=== PATIENT | female | born 1995 | race Caucasian/White ===

== ENCOUNTER 2016-10-21 10:26 | Inpatient (IN) | payer OTHER ==
[2016-10-21] MEDS ORDERED: ZOFRAN IV PRN (20:23)
[2016-10-21] MEDS ORDERED: PEPCID IV PRN (20:23)
[2016-10-21] MEDS ORDERED: PEPCID PO PRN (20:23)
[2016-10-21] MEDS ORDERED: CYTOTEC PO ONE (20:23)
[2016-10-21] MEDS ORDERED: STADOL IV PRN ×2 (20:23)
[2016-10-21] MEDS ORDERED: BRETHINE SUBQ PRN (20:23)
[2016-10-21] MEDS ORDERED: AMBIEN PO PRN (20:23)
[2016-10-21] MEDS ORDERED: TYLENOL PO PRN (20:23)
[2016-10-21] MEDS ORDERED: PITOCIN 30 UNITS/LR 500 ML IV SCH (20:30)
[2016-10-21 21:46] LABS: MANUAL DIFF NEEDED? NO
[2016-10-21 21:49] LABS: BASO% 0.3 % (0.0-0.8); EOS# 0.16 X1000 (0.0-0.7); EOS% 1.5 % (0.0-10.0); HEMATOCRIT 36.4 % (37.0-47.0); HEMOGLOBIN 13.2 g/dL (12.0-16.0); IMM GRAN# 0.14 X1000 (0.0-0.04); IMM GRAN% 1.3 % (0.0-0.5); LYMPH% 15.5 % (20.5-51.1); MCH 31.9 PG (27-31); MCHC 36.3 g/dL (33-37); MCV 87.9 FL (81-99); MONO% 8.2 % (1.7-9.3); MPV 10.5 FL (7.4-10.4); NEUT% 73.2 % (42.2-75.2); PLT 203 X1000 (130-400); RBC 4.14 XMIL (4.2-5.4)
[2016-10-21 21:55] LABS: UR AMPHETAMINES QUAL NONE DETECTED (NONE DETECT); UR BARBITUATES QUAL NONE DETECTED (NONE DETECT); UR BENZODIAZEPIN QUAL NONE DETECTED (NONE DETECT); UR CANNABINOIDS QUAL NONE DETECTED (NONE DETECT); UR COCAINE QUAL NONE DETECTED (NONE DETECT); UR MDMA QUAL NONE DETECTED (NONE DETECT); UR METHADONE QUAL NONE DETECTED (NONE DETECT); UR METHAMPHETAMINE QUAL NONE DETECTED (NONE DETECT); UR OPIATES QUAL NONE DETECTED (NONE DETECT); UR OXYCODONE QUAL NONE DETECTED (NONE DETECT); UR PCP QUAL NONE DETECTED (NONE DETECT); UR TCA QUAL NONE DETECTED (NONE DETECT)
[2016-10-21] MEDS: LR 1,000 ML IV SCH (22:28)
[2016-10-22] MEDS ORDERED: CYTOTEC PO SCH (00:24)
[2016-10-22] MEDS: STADOL IV PRN ×2 (05:01→07:29)
[2016-10-22] MEDS: LR 1,000 ML IV SCH ×4 (05:02→08:35)
[2016-10-22] MEDS ORDERED: MARCAINE 0.25% PF ONE (07:17)
[2016-10-22] MEDS ORDERED: FENTANYL-BUPIV-NS 2 MCG-0.1% 200 ML ONE (07:18)
[2016-10-22] MEDS ORDERED: MARCAINE 0.25% PF INJ ONE (07:30)
[2016-10-22] MEDS ORDERED: FENTANYL-BUPIV-NS 2 MCG-0.1% 200 ML EPIDURAL ONE (08:00)
[2016-10-22] MEDS ORDERED: NESACAINE-MPF 3% ONE (08:44)
[2016-10-22] MEDS ORDERED: FENTANYL ONE (08:44)
[2016-10-22] MEDS ORDERED: XYLOCAINE-MPF 1% ONE (09:31)
[2016-10-22] MEDS ORDERED: PITOCIN IM PRN (09:41)
[2016-10-22] MEDS ORDERED: NORCO-10 PO PRN (09:41)
[2016-10-22] MEDS ORDERED: MINERAL OIL MISC PRN (09:41)
[2016-10-22] MEDS ORDERED: PERCOCET-5 PO PRN (09:41)
[2016-10-22] MEDS ORDERED: M-M-R II VACCINE SUBQ ONE (09:41)
[2016-10-22] MEDS ORDERED: HYDROXYZINE IM PRN (09:41)
[2016-10-22] MEDS ORDERED: XYLOCAINE-MPF 1% INJ PRN (09:41)
[2016-10-22] MEDS ORDERED: CYTOTEC PO PRN (09:41)
[2016-10-22] MEDS ORDERED: BOOSTRIX VACCINE IM ONE (09:41)
[2016-10-22] MEDS ORDERED: BENADRYL IV PRN (09:41)
[2016-10-22] MEDS ORDERED: BENADRYL PO PRN (09:41)
[2016-10-22] MEDS ORDERED: PITOCIN 30 UNITS/LR 500 ML IV ONE (09:41)
[2016-10-22] MEDS ORDERED: PERCOCET-10 PO PRN (09:41)
[2016-10-22] MEDS ORDERED: AMBIEN PO PRN (09:41)
[2016-10-22] MEDS ORDERED: HYDROXYZINE PO PRN (09:41)
[2016-10-22] MEDS ORDERED: PERI MEDS (DERMOPLAST/NUPERCAINAL/TUCKS) MISC PRN (09:41)
[2016-10-22] MEDS ORDERED: PITOCIN 20 UNITS/LR 1,000 ML IV SCH (09:45)
[2016-10-22] MEDS ORDERED: ZOFRAN ODT PO PRN (10:11)
--- NOTE | 2016-10-22 10:23 | OPERATIVE NOTE ---
PROCEDURE DATE: 10/22/2016 TYPE OF DELIVERY: Spontaneous controlled vaginal delivery. ANESTHESIA: Epidural. FINDINGS: At 0927, a 7 pound 3 ounce male infant was delivered in occiput anterior presentation. Apgars were 9 at 1 minute and 10 at 5 minutes. There was a nuchal cord x1. SUMMARY: Nelsy Funes is a 20-year-old primigravida at term gestation. Her blood type is AB positive. Rubella immune. Hepatitis B surface antigen, HIV, and group B strep is negative. She was brought in labor and delivery last night for Cytotec. This morning, she received an epidural, was examined and found to be 7-8 cm. Membranes ruptured revealing clear fluid. She continued to progress through labor without signs of stress or dystocia. She became complete and began pushing. She very quickly crowned. At that point, she was placed in dorsal lithotomy position. Perineum was prepped and draped in usual fashion. Spontaneous controlled vaginal delivery occurred. Once the infant's head was delivered, the oropharynx was bulb suctioned. The nuchal cord was reduced. The shoulders and body delivered without complications. Cord was clamped and cut, and the was handed to the nurses for further care and evaluation. Cord blood was obtained. Placenta was spontaneously delivered and was intact. There was a midline episiotomy, which was repaired in layers using 2-0 Vicryl suture. Blood loss was estimated at 300 mL. The patient remained in the LDR recovering without difficulty.
[2016-10-22] MEDS: NORCO-5 PO PRN ×2 (12:47→21:24)
[2016-10-22] MEDS: MOTRIN PO PRN (12:49)
[2016-10-22] MEDS: PERICOLACE PO SCH ×2 (19:41→21:17)
[2016-10-23 06:34] LABS: HEMATOCRIT 31.1 % (37.0-47.0); HEMOGLOBIN 10.5 g/dL (12.0-16.0); MCH 30.4 PG (27-31); MCHC 33.8 g/dL (33-37); MCV 90.1 FL (81-99); MPV 10.5 FL (7.4-10.4); RBC 3.45 XMIL (4.2-5.4)
[2016-10-23] MEDS: NORCO-5 PO PRN ×2 (08:36→21:03)
[2016-10-23] MEDS: PRECARE PO SCH (08:36)
[2016-10-23] MEDS: MOTRIN PO PRN ×2 (08:37→21:03)
[2016-10-23] MEDS: PERICOLACE PO SCH (21:03)
[2016-10-24 07:52] VITALS: BP 114/77
[2016-10-24] MEDS: MOTRIN PO PRN (08:37)
[2016-10-24] MEDS: PRECARE PO SCH (08:37)
--- NOTE | 2016-10-24 11:26 | DISCHARGE SUMMARY ---
ADMISSION DATE: 10/21/2016 DISCHARGE DATE: 10/24/2016 ADMIT DIAGNOSIS: Term for labor induction. DISCHARGE DIAGNOSIS: Term for labor induction. PROCEDURE: Vaginal delivery. CONDITION: Stable. DIET: As tolerated. ACTIVITY: Routine . MEDICATIONS: Faison 5, Motrin 800, vitamins with iron, and stool softener. FOLLOWUP: She is to follow up in six weeks at the office for her visit. HOSPITAL COURSE: Please refer to Ms. Funes's records and H and P and delivery note. She was admitted for labor induction and had a successful vaginal delivery. Has done well afterwards and is not desiring discharge. Temperature 98.2, blood pressure 117/77, pulse 60. She is alert and cooperative, in no distress. Neck: Supple. Lungs: Clear. Heart: Regular sinus rhythm. Abdomen: Slightly distended. Uterus is firm and nontender. No clubbing, cyanosis or edema of her extremities. Her post delivery hemoglobin and hematocrit are 10.5/31. We will discharge with above instructions.
== END 2016-10-24 14:15 | disposition home or self-care (01) | DRG 775 ==
LOC: P.LD 20:18 → P.WC 10-22 12:05
PROVIDERS: ADMIT Obstetrics & Gynecology; ATTEND Obstetrics & Gynecology
PROC: 10E0XZZ Delivery of Products of Conception, External Approach (ICD-10-PCS; 2016-10-22)
PROC: 10907ZC Drainage of Amniotic Fluid, Therapeutic from Products of Conception, Via Natural or Artificial Opening (ICD-10-PCS; 2016-10-22)
PROC: 3E033VJ Introduction of Other Hormone into Peripheral Vein, Percutaneous Approach (ICD-10-PCS; 2016-10-22)
PROC: 0W8NXZZ Division of Female Perineum, External Approach (ICD-10-PCS; principal; 2016-10-22 08:00)
DX: O69.1XX0 Labor and delivery complicated by cord around neck, with compression, not applicable or unspecified (principal); O71.4 Obstetric high vaginal laceration alone; Z37.0 Single live birth; Z3A.40 40 weeks gestation of pregnancy
CPT/HCPCS: 36415; 59025; 85025; 85027; 86592; G0477; J0595; J2400; J2590; J3010; J7120; S0020